=== PATIENT | female | born 1940 | race American Indian/Alaskan Native ===

== ENCOUNTER 2017-12-27 15:29 | Emergency (ER) | payer MEDICARE ==
[2017-12-27 16:02] LABS: Hematocrit 35.1 % (30.3-42.9); Mean Corpuscular HGB Conc 34 % (30-34); Mean Corpuscular Hemoglobin 33 pg (28-32); Mean Corpuscular Volume 98 fl (79-97); Platelet Count 405 K/mm3 (140-440); Red Cell Distribution Width 13.9 % (13.2-15.2)
[2017-12-27 16:18] LABS: BUN/Creatinine Ratio 13; Blood Urea Nitrogen 9 mg/dL (7-17); Calcium 8.7 mg/dL (8.4-10.2); Hemolysis Index 5
--- NOTE | 2017-12-27 20:56 | Emergency Department Report ---
ED GI Bleed HPI - General Chief complaint: GI Bleed Stated complaint: RECTUM BLEEDING/PAIN Time Seen by Provider: 12/27/17 20:28 Source: patient Mode of arrival: Ambulatory Limitations: No Limitations - History of Present Illness MD complaint: blood on toilet paper -: week(s) (1) Location: diffuse Radiation: none Severity scale (0 -10): 4 Quality: cramping Consistency: constant Improves with: none Worsens with: none Associated Symptoms: denies other symptoms. denies: nausea, vomiting, epistaxis , fever/chills, headaches, loss of appetite, malaise, easy bruising, rash, other bleeding, shortness of breath, syncope - Related Data Allergies Allergy/AdvReac Type Severity Reaction Status Date / Time No Known Allergies Allergy Unverified 12/27/17 15:43 ED Review of Systems ROS: Stated complaint: RECTUM BLEEDING/PAIN Other details as noted in HPI Comment: All other systems reviewed and negative ED Past Medical Hx - Past Medical History Hx Hypertension: Yes Hx GERD: Yes Additional medical history: bronchitis,hemorrhoids - Surgical History Additional Surgical History: right total hip replacement - Social History Smoking Status: Former Smoker Substance Use Type: None ED Physical Exam - General Limitations: No Limitations General appearance: alert, in no apparent distress - Head Head exam: Present: atraumatic, normocephalic - Eye Eye exam: Present: normal appearance - ENT ENT exam: Present: mucous membranes moist - Neck Neck exam: Present: normal inspection - Respiratory Respiratory exam: Present: normal lung sounds bilaterally. Absent: respiratory distress, wheezes, rales - Cardiovascular Cardiovascular Exam: Present: regular rate, normal rhythm. Absent: systolic murmur, diastolic murmur, rubs, gallop - GI/Abdominal GI/Abdominal exam: Present: soft, normal bowel sounds. Absent: distended, tenderness, guarding, rebound - Extremities Exam Extremities exam: Present: normal inspection - Back Exam Back exam: Present: normal inspection - Neurological Exam Neurological exam: Present: alert, oriented X3 - Psychiatric Psychiatric exam: Present: normal affect, normal mood - Skin Skin exam: Present: warm, dry, intact, normal color. Absent: rash ED Course Vital Signs 12/27/17 12/27/17 15:37 20:49 Temperature 98.2 F Pulse Rate 109 H 74 Respiratory 18 16 Rate Blood Pressure 190/78 Blood Pressure 138/75 [Left] O2 Sat by Pulse 99 95 Oximetry ED Medical Decision Making - Lab Data Result diagrams: 12/27/17 15:47 12/27/17 15:47 - Radiology Data Patient: OSMANY JENKINS MR#: [id number] : 1940 Acct:[id number] Age/ Sex: 77 / F ADM Date: 12/27/17 Loc: ED Attending Dr: Ordering Physician: SONG PEMBERTON MD Date of Service: 12/27/17 Procedure(s): CT abdomen pelvis w con Accession Number(s): [id number] cc: SONG PEMBERTON MD FINAL REPORT EXAM: CT ABDOMEN PELVIS W CON HISTORY: rectalbleed w/ abd cramps TECHNIQUE: Following IV administration of 100 cc of Omnipaque 300 axial helical imaging was performed through the abdomen and pelvis with sagittal and coronal reformatted images obtained. Additionally delayed axial helical imaging was performed through the abdomen and pelvis. Comparison: None FINDINGS: The lung bases are without infiltrate, pneumothorax or pleural fluid collection. There is a small left diaphragmatic hernia that contains fat. There is an approximately 7 centimeter hiatal hernia that contains a large portion of the stomach. There is evidence of fatty infiltration/steatosis of the liver. The spleen, pancreas, kidneys and adrenal glands are unremarkable in appearance. The gallbladder is moderately distended and contains gallstones. The proximal appendix is normal caliber and contains air. However, there is increased caliber of the distal appendix (9 millimeters) which contains fluid. There is no definite evidence of periappendiceal inflammatory change. The bowel is otherwise normal caliber. There is colonic diverticulosis without radiographic evidence of diverticulitis. There is no evidence of pneumoperitoneum or free fluid. The abdominal aorta is normal caliber. There is no evidence of pathologic intra- abdominal adenopathy by CT size criteria. The urinary bladder is mildly distended and unremarkable in appearance. The uterus and adnexal are unremarkable in appearance. The bony structures are notable for retained hardware in the proximal right femur, spondylitic change lumbar spine and grade 1 anterolisthesis L4 on L5 secondary to degenerative facet change at this level. There is a small umbilical hernia that contains fat. IMPRESSION: 1. Mild increase caliber of the distal appendix (9 millimeters) which contains fluid. There is no definite evidence of periappendiceal inflammatory change. Comparison with previous imaging studies would be helpful. 2. Colonic diverticulosis without radiographic evidence of diverticulitis. 3. Gallstones within the gallbladder. 4. Hiatal hernia. 5. Small left diaphragmatic hernia that contains fat. 6. Small umbilical hernia that contains fat. 7. Retained hardware proximal right femur, spondylitic change lumbar spine and grade 1 anterolisthesis L4 on L5. Transcribed By: ED Dictated By: VICENTA PEREZ MD Electronically Authenticated By: VICENTA PEREZ MD Signed Date/Time : 12/27/17 2545 - Medical Decision Making Patient is 77-year-old female who has some cervical GI bleed. Patient states that she is having no symptoms. Patient's bleeding most likely secondary to his diverticulosis. Patient is afebrile and is not having any reproducible abdominal pain at this time. Patient will be referred to [facility]-and I will be discharged home in stable condition. Critical care attestation.: If time is entered above; I have spent that time in minutes in the direct care of this critically ill patient, excluding procedure time. ED Disposition Clinical Impression: Diverticulosis Qualifiers: Diverticulosis site: diverticulosis of large intestine Diverticulosis bleeding : diverticulosis with bleeding Qualified Code(s): K57.31 - Diverticulosis of large intestine without perforation or abscess with bleeding Disposition: DC-01 TO HOME OR SELFCARE Is pt being admited?: No Does the pt Need Aspirin: No Condition: Stable Instructions: Diverticulosis Diet (ED), Diverticulosis (ED) Referrals: DAVE FUNG MD [Staff Physician] - 3-5 Days Forms: Accompanied Note Time of Disposition: 23:24
--- NOTE | 2017-12-27 23:01 | Cat Scan Report ---
FINAL REPORT EXAM: CT ABDOMEN PELVIS W CON HISTORY: rectalbleed w/ abd cramps TECHNIQUE: Following IV administration of 100 cc of Omnipaque 300 axial helical imaging was performed through the abdomen and pelvis with sagittal and coronal reformatted images obtained. Additionally delayed axial helical imaging was performed through the abdomen and pelvis. Comparison: None FINDINGS: The lung bases are without infiltrate, pneumothorax or pleural fluid collection. There is a small left diaphragmatic hernia that contains fat. There is an approximately 7 centimeter hiatal hernia that contains a large portion of the stomach. There is evidence of fatty infiltration/steatosis of the liver. The spleen, pancreas, kidneys and adrenal glands are unremarkable in appearance. The gallbladder is moderately distended and contains gallstones. The proximal appendix is normal caliber and contains air. However, there is increased caliber of the distal appendix (9 millimeters) which contains fluid. There is no definite evidence of periappendiceal inflammatory change. The bowel is otherwise normal caliber. There is colonic diverticulosis without radiographic evidence of diverticulitis. There is no evidence of pneumoperitoneum or free fluid. The abdominal aorta is normal caliber. There is no evidence of pathologic intra-abdominal adenopathy by CT size criteria. The urinary bladder is mildly distended and unremarkable in appearance. The uterus and adnexal are unremarkable in appearance. The bony structures are notable for retained hardware in the proximal right femur, spondylitic change lumbar spine and grade 1 anterolisthesis L4 on L5 secondary to degenerative facet change at this level. There is a small umbilical hernia that contains fat. IMPRESSION: 1. Mild increase caliber of the distal appendix (9 millimeters) which contains fluid. There is no definite evidence of periappendiceal inflammatory change. Comparison with previous imaging studies would be helpful. 2. Colonic diverticulosis without radiographic evidence of diverticulitis. 3. Gallstones within the gallbladder. 4. Hiatal hernia. 5. Small left diaphragmatic hernia that contains fat. 6. Small umbilical hernia that contains fat. 7. Retained hardware proximal right femur, spondylitic change lumbar spine and grade 1 anterolisthesis L4 on L5.
[2017-12-28 00:13] VITALS: BP 142/77
== END 2017-12-28 00:13 | disposition home or self-care (01) ==
LOC: ED 15:29
DX: K57.31 Diverticulosis of large intestine without perforation or abscess with bleeding (principal); I10 Essential (primary) hypertension; K21.9 Gastro-esophageal reflux disease without esophagitis; Z87.891 Personal history of nicotine dependence; Z96.641 Presence of right artificial hip joint
CPT/HCPCS: 36415; 74177; 80048; 85027; 99284; Q9967